=== PATIENT | female | born 1995 | race Hispanic/Latino ===

== ENCOUNTER 2017-04-13 13:16 | Emergency (ER) | payer SELFPAY ==
[2017-04-13 19:28] VITALS: BP 130/77
--- NOTE | 2017-04-13 20:49 | Emergency Department Report ---
ED Female HPI - General Chief complaint: Urogenital-Female Stated complaint: VAG PROBLEMS Time Seen by Provider: 04/13/17 19:15 Source: patient Mode of arrival: Ambulatory Limitations: No Limitations - History of Present Illness Initial comments: This is a 21 y.o. female presents with vaginal discharge for 2-3 months. Discharge is yellow and malodorous. Denies recent exposure to STD, pain, frequency, and urgency. She haven't tried anything OTC. MD Complaint: vaginal discharge (yellow) -: month(s) (2-3) Location: labia Radiation: non-radiating Severity: mild Severity scale (0 -10): 0 Consistency: intermittent Improves with: none Worsens with: intercourse (discharge odor is worse with intercourse) Are you Now?: No Last Menstrual Period: 03/21/17 EDC: 12/26/17 Associated Symptoms: vaginal discharge. denies: vaginal bleeding, abdominal pain, nausea/vomiting, fever/chills, headaches, loss of appetite, dysuria, hematuria, seizure, shortness of breath, syncope, weakness - Related Data Sexually active: Yes Previous Rx's Medication Instructions Recorded Last Taken Type metroNIDAZOLE [Flagyl] 500 mg PO Q12HR 7 Days #14 tab 04/13/17 Unknown Rx Allergies Allergy/AdvReac Type Severity Reaction Status Date / Time No Known Allergies Allergy Unverified 04/13/17 14:20 ED Review of Systems ROS: Stated complaint: VAG PROBLEMS Other details as noted in HPI Constitutional: denies: chills, fever Respiratory: denies: cough, shortness of breath, wheezing Cardiovascular: denies: chest pain, palpitations Gastrointestinal: denies: abdominal pain, nausea, diarrhea Genitourinary: discharge (yellow) Neurological: denies: headache, weakness, paresthesias ED Past Medical Hx - Past Medical History Previous Medical History?: No - Social History Smoking Status: Never Smoker - Medications Home Medications: Home Medications Medication Instructions Recorded Confirmed Last Taken Type metroNIDAZOLE [Flagyl] 500 mg PO Q12HR 7 Days #14 tab 04/13/17 Unknown Rx ED Physical Exam - General Limitations: No Limitations General appearance: alert, in no apparent distress - Respiratory Respiratory exam: Present: normal lung sounds bilaterally. Absent: respiratory distress - Cardiovascular Cardiovascular Exam: Present: regular rate, normal rhythm. Absent: systolic murmur, diastolic murmur, rubs, gallop - GI/Abdominal GI/Abdominal exam: Present: soft, normal bowel sounds - External exam: Present: normal external exam. Absent: erythema, swelling, lesions, lacerations, ecchymosis, bleeding Speculum exam: Present: vaginal discharge (thick, yellow, foul odor). Absent: cervical discharge, vaginal bleeding, foreign body, tissue, laceration Bi-manual exam: Present: normal bi-manual exam. Absent: cervical motion tendernes, adnexal tenderness, adnexal mass, uterine enlargement, uterine tenderness - Back Exam Back exam: Present: normal inspection. Absent: CVA tenderness (R), CVA tenderness (L) - Neurological Exam Neurological exam: Present: alert, oriented X3 - Skin Skin exam: Present: warm, dry, intact, normal color. Absent: rash ED Course Vital Signs 04/13/17 04/13/17 14:16 19:21 Temperature 98.6 F Pulse Rate 101 H 73 Respiratory 20 18 Rate Blood Pressure 158/95 130/77 O2 Sat by Pulse 96 97 Oximetry ED Medical Decision Making - Medical Decision Making This is a 21 y.o. female presents with malodorous vaginal discharge for 2-3 months. UA ordered, urine negative. Start flagyl 500 mg po bid for 7 days. F/U with PCP Critical care attestation.: If time is entered above; I have spent that time in minutes in the direct care of this critically ill patient, excluding procedure time. ED Disposition Clinical Impression: Acute vaginitis Disposition: - TO HOME OR SELFCARE Is pt being admited?: No Does the pt Need Aspirin: No Condition: Stable Instructions: Bacterial Vaginosis (ED), Vaginitis (ED) Additional Instructions: If symptoms persist follow up with primary care provider or Health Department. Prescriptions: metroNIDAZOLE [Flagyl] 500 mg PO Q12HR 7 Days #14 tab Referrals: PRIMARY CARE, [Primary Care Provider] - 3-5 Days [facility] [place] [Outside] - 3-5 Days [facility] [Outside] - 3-5 Days [facility] [Outside] - 3-5 Days [facility] [Outside] - 3-5 Days Time of Disposition: 22:39 Print Language: MALAWIAN
[2017-04-13 22:24] LABS: Bacteria,Urine 1+ /HPF (Negative); Bilirubin,Urine NEG (Negative); Blood,Urine NEG (Negative); Color,Urine Yellow (Yellow); Hyaline Casts,Urine 1 /LPF; Mucus,Urine FEW /HPF; Nitrite,Urine NEG (Negative); Protein,Urine <15 mg/dL mg/dL (Negative); Urobilinogen,Urine < 2.0 mg/dL (<2.0); WBC,Urine < 1.0 /HPF (0.0-6.0)
[2017-04-13 22:34] LABS: HCG Qualitative,Urine Negative (Negative)
== END 2017-04-13 22:43 | disposition home or self-care (01) ==
LOC: ED 13:16
DX: N76.0 Acute vaginitis (principal)
CPT/HCPCS: 81001; 81025; 87210; 87591; 99284

== ENCOUNTER 2018-07-28 08:56 | Emergency (ER) | payer OTHER ==
[2018-07-28] MEDS ORDERED: DECADRON PO ONE (10:36)
[2018-07-28] MEDS ORDERED: PROVENTIL IH ONE (10:36)
--- NOTE | 2018-07-28 10:40 | Emergency Department Report ---
Minor Respiratory - HPI Chief Complaint: Upper Respiratory Infection Stated Complaint: COUGH/EYE DISCHARGE/EARACHE Time Seen by Provider: 07/28/18 10:15 Duration: 1 week Pain Location: Nose Severity: moderate Minor Respiratory: Yes Rhinorrhea, Yes Sore Throat, Yes Able to Tolerate Fluids, Yes Ear Pain, Yes Cough, No Sick Contacts, No Hemoptysis, No Shortness of Breath, No Fever Other History: 23-year-old female comes to the emergency room for 1 week of chest congestion, earache to the right ear, eye drainage, swelling tonsils. Patient reports she's been using [id number] [place] plus and NyQuil. Patient denies any fever or chills no nausea no vomiting no shortness of breathing no chest pain. Patient denies any past medical history reports he takes no medications on a daily basis and has no known drug allergies. ED Review of Systems ROS: Stated complaint: COUGH/EYE DISCHARGE/EARACHE Other details as noted in HPI Comment: All other systems reviewed and negative Constitutional: denies: chills, fever Eyes: denies: eye pain, eye discharge, vision change ENT: throat pain, congestion, other (rhinorrhea) Respiratory: cough Cardiovascular: denies: chest pain, palpitations Endocrine: no symptoms reported Gastrointestinal: denies: abdominal pain, nausea, diarrhea Genitourinary: denies: urgency, dysuria, discharge ED Past Medical Hx - Past Medical History Previous Medical History?: No - Surgical History Past Surgical History?: No - Social History Smoking Status: Current Every Day Smoker Substance Use Type: Alcohol - Medications Home Medications: Home Medications Medication Instructions Recorded Confirmed Last Taken Type metroNIDAZOLE [Flagyl] 500 mg PO Q12HR 7 Days #14 tab 04/13/17 Unknown Rx Albuterol Sulfate [Ventolin Hfa] 8 gm IH Q6H PRN #1 hfa.aer.ad 07/28/18 Unknown Rx Benzonatate [Tessalon Perles] 100 mg PO Q8HR #15 capsule 07/28/18 Unknown Rx Fluticasone [Flonase] 1 spray NS QDAY #1 bottle 07/28/18 Unknown Rx Levocetirizine Dihydrochloride 5 mg PO QDAY #30 tablet 07/28/18 Unknown Rx [24Hr Allergy Relief] Minor Respiratory Exam - Exam General: Vital signs noted. No distress. Alert and acting appropriately. HEENT: Yes Pharyngeal Exudates Ear: Neither TM Bulge, Neither TM Erythema, Neither EAC Pain, Neither EAC Discharge Neck: Yes Supple, No Adenopathy Lungs: Yes Wheezes, No Use of Accessory Muscles Heart: No Regular (tachycardic), No Murmur Abdomen: Yes Normal Bowel Sounds, No Tenderness, No Peritoneal Signs Skin: No Rash, No Edema Neurologic: Alert and oriented, no deficits. Musculoskeletal: Unremarkable. ED Course Vital Signs 07/28/18 08:58 Temperature 98.5 F Pulse Rate 121 H Respiratory 20 Rate Blood Pressure 169/102 O2 Sat by Pulse 98 Oximetry ED Medical Decision Making - Radiology Data Radiology results: report reviewed Patient: CLAUDIA GOMEZ MR#: [id number] : 1995 Acct:[id number] Age/Sex: 23 / F ADM Date: 07/28/18 Loc: ED Attending Dr: Ordering Physician: CINDY CONLEY Date of Service: 07/28/18 Procedure(s): XR chest routine 2V Accession Number(s): [id number] cc: CINDY CONLEY Fluoro Time In Minutes: PROCEDURE: XR CHEST ROUTINE 2V TECHNIQUE: Chest examination, lateral and frontal views HISTORY: cough, wheezing congestion COMPARISONS: None FINDINGS: There is no visible pulmonary consolidation. No radiographically visible pneumothorax. No evidence of pleural effusion. Cardiac silhouette size is normal without vascular congestion. No visible acute displaced fracture in the regional skeleton. IMPRESSION: No acute cardiopulmonary disease in the visualized chest. This document is electronically signed by Vick Lebron MD., July 28 2018 12:15:01 PM ET Transcribed By: GINETTE Dictated By: VICK LEBRON MD Electronically Authenticated By: VICK LEBRON MD Signed Date/Time: 07/28/18 1216 DD/ 1100 TD/TT: 07/28/18 1101 Critical care attestation.: If time is entered above; I have spent that time in minutes in the direct care of this critically ill patient, excluding procedure time. ED Disposition Clinical Impression: Allergic rhinitis Qualifiers: Allergic rhinitis trigger: pollen Allergic rhinitis seasonality: seasonal Qualified Code(s): J30.1 - Allergic rhinitis due to pollen Disposition: DC-01 TO HOME OR SELFCARE Is pt being admited?: No Does the pt Need Aspirin: No Condition: Stable Instructions: Allergic Rhinitis (ED) Additional Instructions: Take medications as prescribed. Follow-up with a primary care provider if his symptoms persist or gets worse. Chest x-ray was negative for any abnormalities. Prescriptions: Levocetirizine Dihydrochloride [24Hr Allergy Relief] 5 mg PO QDAY #30 tablet Fluticasone [Flonase] 1 spray NS QDAY #1 bottle Benzonatate [Tessalon Perles] 100 mg PO Q8HR #15 capsule Albuterol Sulfate [Ventolin Hfa] 8 gm IH Q6H PRN #1 hfa.aer.ad PRN Reason: Wheezing Referrals: [facility] [Other] - 3-5 Days
--- NOTE | 2018-07-28 12:16 | XRay Report ---
PROCEDURE: XR CHEST ROUTINE 2V TECHNIQUE: Chest examination, lateral and frontal views HISTORY: cough, wheezing congestion COMPARISONS: None FINDINGS: There is no visible pulmonary consolidation. No radiographically visible pneumothorax. No evidence of pleural effusion. Cardiac silhouette size is normal without vascular congestion. No visible acute displaced fracture in the regional skeleton. IMPRESSION: No acute cardiopulmonary disease in the visualized chest. This document is electronically signed by Vick Meehan MD., July 28 2018 12:15:01 PM ET
[2018-07-28 12:53] VITALS: BP 149/82
== END 2018-07-28 12:53 | disposition home or self-care (01) ==
LOC: ED 08:56
DX: J30.1 Allergic rhinitis due to pollen (principal); F17.200 Nicotine dependence, unspecified, uncomplicated
CPT/HCPCS: 71046; 94640; 99283; J8540